=== PATIENT | female | born 1935 | race Caucasian/White ===

== ENCOUNTER → 2017-05-08 | Outpatient (CLI) | payer MEDICARE, BC ==
--- NOTE | 2017-05-08 14:33 | RADIOLOGY REPORT (SQ) ---
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 Images stored on PACS. Additional thin section axial T2, axial pre and postcontrast T1, coronal thin postcontrast T1 images through the internal auditory canals and inner ear structures. CONTRAST TYPE AND DOSE: 10 mL Multihance. RENAL FUNCTION: Estimated GFR 47 LIMITATIONS: None. FINDINGS: ANATOMY: No developmental anomalies. Normal vascular flow voids. Pituitary fossa normal. CSF SPACES: Normal in size and contour. No hemorrhage. CEREBRUM: Sulci and gyri normal in size and contour. Minimal spotty increased bifrontal and bipariet al white matter signal on FLAIR imaging, likely small vessel ischemic change. No evidence of hemorrha ge, mass, or extraaxial fluid collection. No abnormal enhancement post contrast. POSTERIOR FOSSA: Mild increased FLAIR/ T2 signal in the mid zabrina and left brainstem inferior collicul us region, likely chronic small vessel ischemic change. No acute hemorrhage. No edema, masses, or ma ss effect. Internal auditory canals, cerebellopontine angles, mastoids normal. No enhancing lesions. No abnormal enhancement post contrast. DIFFUSION IMAGING: Negative for acute or subacute infarction. ORBITS: No masses. Globes normal. Post left cataract surgery PARANASAL SINUSES: No fluid levels. Mucosa normal. OTHER: No other significant finding. IMPRESSION: Mild small vessel ischemic change, age-appropriate. No abnormal masses or enhancement along the 7th/ 8th nerves or inner ear structures TECHNICAL DOCUMENTATION: JOB ID: [id number] - [employer]- All Rights Reserved
== END ==
LOC: RAD 12:47
PROVIDERS: ATTEND Otolaryngology
DX: H90.3 Sensorineural hearing loss, bilateral (principal); H93.13 Tinnitus, bilateral
CPT/HCPCS: 82565; 70553; A9577